=== PATIENT | male | born 1980 | race Caucasian/White ===

== ENCOUNTER 2017-09-07 13:46 | Emergency (ER) | payer BC ==
[~2017-09-07] VITALS: Ht 172.7 cm; Wt 93.3 kg
[~2017-09-07 13:46] MED LIST: MS CONTIN,ORAMO15 M2 PO; PERCOCET 10-321 EACH PO; SIMVASTATIN40 M1 PO; SINEMET 25-11 TABLET PO
[2017-09-07 14:45] LABS: HEMATOCRIT 43.7 % (38.0-50.0); MCH 30.3 PG (29.0-34.0); MCHC 35.2 G/DL (30.0-36.0); MEAN PLAT.VOLUME 8.8 uM^3 (9.0-12.4); PLATELET COUNT 340 K/uL (156-360); RBC DIS.WIDTH-CV 11.9 % (11.8-14.6); RBC DIS.WIDTH-SD 37.3 % (39-53); RED BLOOD COUNT 5.08 M/uL (4.00-5.50); WHITE BLOOD COUNT 8.4 K/uL (4.1-10.2)
[2017-09-07 14:52] LABS: D-DIMER ELISA < 150.00 ng/mLDDU (<230)
[2017-09-07 14:53] LABS: CHLORIDE 100 mEq/L (99-109); SODIUM 137 mEq/L (136-147)
[2017-09-07 14:55] LABS: GLUCOSE 117 mg/dL (70-99)
[2017-09-07 14:56] LABS: ANION GAP 12 MEQ/L (2-14)
[2017-09-07 14:59] LABS: GFR ESTIMATE (CALCULATED) > 59 mL/min/ (58.99-99999)
[2017-09-07 15:00] LABS: UREA NITROGEN (BUN) 7 mg/dL (9-23)
[2017-09-07] MEDS ORDERED: OXYCODONE HCL15 MG PO (15:01)
[2017-09-07] MEDS ORDERED: CLEMASTINE FU2.68 MG PO (15:01)
[2017-09-07] MEDS ORDERED: OXYCONTIN30 MG PO (15:01)
[2017-09-07] MEDS ORDERED: ESOMEPRAZOLE MA40 MG PO (15:03)
[2017-09-07 15:06] LABS: TROP-I INTERPRETATION NEGATIVE; TROPONIN-I < 0.01 ng/mL (0.0-0.30)
[2017-09-07 17:26] LABS: TROP-I INTERPRETATION NEGATIVE; TROPONIN-I < 0.01 ng/mL (0.0-0.30)
[2017-09-07 17:42] VITALS: BP 123/82
== END 2017-09-07 17:42 | disposition home or self-care (01) ==
LOC: EME 13:46
PROVIDERS: Nurse Practitioner Family
DX: R07.89 Other chest pain (principal); M79.651 Pain in right thigh; R06.02 Shortness of breath; R00.0 Tachycardia, unspecified; R03.0 Elevated blood-pressure reading, without diagnosis of hypertension; F17.200 Nicotine dependence, unspecified, uncomplicated; E78.5 Hyperlipidemia, unspecified; Z82.49 Family history of ischemic heart disease and other diseases of the circulatory system; Z79.891 Long term (current) use of opiate analgesic
CPT/HCPCS: 71020; 80048; 84484; 85027; 85379; 93005; 99281; 99284